=== PATIENT | female | born 1995 | race Caucasian/White ===

== ENCOUNTER 2017-04-05 06:00 | Emergency (ER) | payer OTHER ==
[~2017-04-05] VITALS: Ht 160 cm; Wt 56.8 kg
[2017-04-05 06:01] VITALS: BP 147/80; PULSE 84; RESP 16; O2SAT 99
--- NOTE | 2017-04-05 06:08 | ED.REPORT ---
HPI-Extremity Problem Lower Date of Service Apr 05, 2017 ED Provider: Ryan Beth MD The pt is a 21 y/o female presenting to the ED complaining of R ankle pain. She fell and inverted her ankle and has been unable to bear weight on it since. The pt broke her foot in the past but did not require surgery. She describes the pain affecting her primarily when she moves it and puts weight on it but she was unable to sleep last night due to the pain. She reports taking Ibuprofen and icing her ankle at 0500 this morning for the pain. Denies numbness or tingling. Nursing Notes Stated Complaint: RIGHT ANKLE PAIN Chief Complaint: Extremity Trauma Nursing Notes Reviewed: Yes ([employer], [employer] not reconciled) Allergies: Coded Allergies: No Known Allergies (Unverified , 04/05/17) General Time Seen by MD: 06:06 Chief Complaint Ankle injury right Hx Obtained From: Patient Arrived By: Walk-in Onset Occurred: Yesterday Symptom Duration: Since onset Caused by: Fall on ground Immunizations: All up to date Recent Healthcare: No recent doctor visit, No recent hospitalization Similar Sx Previous: No Past Medical History Past Medical History Broken R foot Past Surgical History None reported Smoking History Unknown if Ever Smoker Social History Other Social History: Good social support Ambulatory Status Independent Review of Systems Musculoskeletal: Reports: Joint pain (R ankle ), Joint swelling Neurologic: Denies: Numbness Complete sys rev & neg: except as marked. Physical Exam Initial Vital Signs Vital Signs (First) Date Time Temp Pulse Resp B/P Pulse Ox O2 Delivery O2 Flow Rate FiO2 04/05/17 06:01 36.4 84 16 147/80 99 Room Air Initial VS: Reviewed, Vital signs normal General/Constitutional: Well-developed, Well-nourished Head / Eyes: Atraumatic, Normocephalic, PERRL Neck: Supple, Non-tender, Full range of motion Respiratory: Breath sounds normal, Clear to auscultation, No respiratory distress Cardiovascular: Regular rate & rhythm, Heart sounds normal, Intact distal pulses Upper Extremities: Vascular intact, Neuro intact, No swelling, No tenderness Skin: Warm, Dry, No cyanosis Neurologic: Alert, Oriented, Nonfocal Psychiatric: Mood/affect normal, Behavior normal, Normal thought content Lower Extremity / Pelvis / MS: Neurologic intact, Vascular intact No proximal tibial or fibular tenderness Right Ankle: Positive: Ecchymosis present (Lateral malleolus ), Swelling present... (Lateral malleolus ) 5th metatarsal non-tender Interpretation & Diagnostics X-Ray Interpretation Xray Interpretation: Impression: No acute findings X-Ray Ordered: Ankle right Interpretation / Wet Read by: Wet read ED physician Interpretation: Normal exam Re-Eval/Medical Decision Med Decision/Clinical Course This is a healthy 21-year-old female presents with right ankle pain following an inversion injury last night. She reports unable to bear weight since the event, slept poorly secondary to pain, had swelling and discomfort of the right malleolus sick into the department. She has a previous history of a foot injury , but did not or surgery. She has no additional complaints. On exam she has ecchymosis swelling and tenderness over the lateral malleolus, but was neurovascularly intact. There is no proximal fibula or tibia tenderness. Knee exams normal. The rest exam is normal. There is no foot tenderness, no tenderness of the fifth metatarsal. Plain radiographs of the right ankle were negative per my interpretation. Patient's place an air splint, crutches, routine ankle sprain injury precautions reviewed. Patient climbed a pain medicine. She is being discharged on a course of ibuprofen, ice, rest. Source of Hx: Old records Re-Evaluation/Progress : Time of Eval: 06:57 Re-Evaluation/Progress Note: Pt rechecked. Discussed negative x-ray results. F/U instructions and RTER warnings given. All questions addressed. Differential Diagnosis: Positive: Sprain, Negative: Abrasion, Achilles tendon rupture, Ankle dislocation, Cellulitis, Compartment syndrome, Femur fracture, Fibular fracture, Fracture, Greater trochant fracture, Knee fracture, Laceration Counseled Regarding: Diagnosis, Lab results, Need for follow-up, When/why to return to ED Discharge & Departure Impression: Primary Impression: Right ankle sprain Encounter type: initial encounter Involved ligament of ankle: deltoid ligament Qualified Code: S93.421A - Sprain of deltoid ligament of right ankle , initial encounter Disposition: Home Discharge Condition All VS Reviewed: Yes Condition: Stable Additional Instructions: 1. No fractures were appreciated on Xray. 2. Use the air splint as needed for the next 1-3 weeks. 3. Use the crutches as needed - with the goal of being off crutches in ~3-5 days. 4. Continue ibuprofen 400-800mg three times a day. 5. Apply ice 20 minutes at a time frequently over the next 24 hours. 6. Weight bearing as tolerated. 7. Do not return to full activities until pain free. 8. It usually takes several weeks to 1-2 months for symptoms to resolve completely. 9. Follow up with your regular doctor as needed. Referrals: Ellen Mcginnis MD (PCP) Scribe Attestation Portions of this note were transcribed by Albert Fregoso. I, Dr. Beth personally performed the history, physical exam and medical decision-making; I reviewed and confirmed the accuracy of the information in the transcribed note. Signed by : Donnie Rahman, 04/05/17 and [id number]. copies to: Ellen Mcginnis MD, Matthew F MD Apr 05, 2017 06:07 Albert Fregoso Apr 05, 2017 06:24
[2017-04-05 08:19] VITALS: BP 142/77; PULSE 79; RESP 16; O2SAT 99
[2017-04-05 08:20] VITALS: BP 142/77; PULSE 79; RESP 16; O2SAT 99
--- NOTE | 2017-04-05 11:18 | DRSVH ---
PROCEDURE: X-RAY RIGHT ANKLE, MINIMUM THREE VIEWS ([id number]) INDICATIONS: pain TECHNIQUE: 3 views of the ankle were acquired. COMPARISON: None. FINDINGS: Bones: No fractures or dislocations. Ankle mortise is normally aligned. No suspicious bony lesions . Soft tissues: No tibiotalar joint effusion. Achilles tendon appears normal. IMPRESSION: No displaced fracture seen. If there is continued pain, followup exam or additional dileep ging such as MRI or CT could be performed for further assessment. Dictated by: Jarrod Lucas [facility] Interpreted: Sheila Jack MD on 04/05/2017 at 8:53 Transcribed by: SADIQ on 04/05/2017 at 8:54 Approved by: Sheila Jack M.D. on 04/05/2017 at 10:10
== END 2017-04-05 08:22 | disposition home or self-care (01) ==
LOC: SED 06:00
DX: S93.421A Sprain of deltoid ligament of right ankle, initial encounter (principal); W19.XXXA Unspecified fall, initial encounter; Y93.9 Activity, unspecified; Y92.9 Unspecified place or not applicable; Y99.8 Other external cause status